=== PATIENT | male | born 2000 | race Caucasian/White ===

== ENCOUNTER 2020-11-20 13:17 | Emergency (ER) | payer OTHER ==
[~2020-11-20 13:17] MED LIST: CIPRO500 MG PO
[2020-11-20] MEDS ORDERED: NAPROXEN500 MG PO (15:33)
[2020-11-20] MEDS ORDERED: CYCLOBENZAPRINE10 MG PO (15:33)
[2020-11-20] MEDS ORDERED: PREDNISONE 20MG20 MG PO (15:33)
== END 2020-11-20 15:35 | disposition home or self-care (01) ==
LOC: FER 13:17
DX: S39.012A Strain of muscle, fascia and tendon of lower back, initial encounter (principal); M54.42 Lumbago with sciatica, left side; E66.9 Obesity, unspecified; F17.290 Nicotine dependence, other tobacco product, uncomplicated; X58.XXXA Exposure to other specified factors, initial encounter
CPT/HCPCS: 72100; 73502; J1885